=== PATIENT | female | born 1965 | race Two or more races ===

== ENCOUNTER 2018-02-18 15:52 | Emergency (ER) | payer OTHER ==
[~2018-02-18] VITALS: Ht 162.6 cm; Wt 62.1 kg
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
== END 2018-02-18 16:10 | disposition home or self-care (01) ==
LOC: ER 15:58
DX: S13.4XXA Sprain of ligaments of cervical spine, initial encounter (principal); V43.52XA Car driver injured in collision with other type car in traffic accident, initial encounter; Y93.89 Activity, other specified; Y92.410 Unspecified street and highway as the place of occurrence of the external cause; Y99.8 Other external cause status
CPT/HCPCS: A4663